=== PATIENT | male | born 1970 | race Caucasian/White ===

== ENCOUNTER → 2023-04-16 11:41 | Outpatient (REF) | payer OTHER, SELFPAY | LOC: MRI 3T 11:41 | PROVIDERS: ATTENDING PHYSICIAN Student in an Organized Health Care Education/Training Program | DX: H53.2 Diplopia (principal) | CPT/HCPCS: 70553; A9575 ==

== ENCOUNTER 2024-03-03 16:06 | Inpatient (IN) | payer OTHER, SELFPAY ==
[2024-03-02] VITALS (10 sets, daily range): BP systolic 124–151; BP diastolic 79–103; BMI 32.0
[2024-03-02 11:22] LABS: % Basophils 0.4 % (0-2); % Eosinophils 4.8 % (0-6); % Immature Granulocytes 0.4 % (0-0.5); % Lymphocytes 25.4 % (20.5-51.1); % Monocytes 10.9 % (1.7-9.3); % Neutrophils 58.1 % (42.2-75.2); Absolute Eosinophils 0.3 10^3/uL (0-0.7); Absolute Lymphocytes 1.3 10^3/uL (1.2-3.4); Absolute Monocytes 0.6 10^3/uL (0.1-0.6); Hematocrit 46.3 % (39.0-52.0); Hemoglobin 16.4 g/dL (13.0-18.0); Mean Corp Hgb Conc. 35.4 g/dL (33.0-37.0); Mean Corpuscular Hgb 30.7 pg (27.0-31.0); Mean Corpuscular Volume 86.7 fL (80.0-94.0); Mean Platelet Volume 10.3 fL (7.4-10.4); Nucleated Red Blood Cells % 0 % (-); Platelet Count 200 10^3/uL (130-400); Red Blood Cell Count 5.34 10^6/uL (4.70-6.10); Red Cell Dist. Width 14.4 % (11.5-14.5); White Blood Cell Count 5.2 10^3/uL (4.8-10.8)
[2024-03-02 11:35] LABS: ALT (SGPT) 39 U/L (0-50); AST (SGOT) 34 U/L (17-59); Albumin 4.6 g/dl (3.5-5.0); Alkaline Phosphatase 44 U/L (38-126); Blood Urea Nitrogen 18 mg/dl (9-20); Calcium 9.6 mg/dl (8.4-10.2); Carbon Dioxide 25 mmol/L (22-30); Chloride 104 mmol/L (98-107); Glucose 147 mg/dl (70-99); Potassium 4.3 mmol/L (3.5-5.1); Sodium 140 mmol/L (135-145); Total Bilirubin 0.9 mg/dl (0.2-1.3); Total Protein 7.5 g/dl (6.3-8.2); eGFR > 60.00
[2024-03-02 11:47] LABS: Troponin I 0.031 ng/ml
[2024-03-02] MEDS: ASPIRIN 325 MG PO (12:19)
--- NOTE | 2024-03-02 13:09 | ED.GENMED ---
History of Present Illness
<AUSTIN Concepcion Jr. Last Filed: 03/03/24 13:09>
General
Chief Complaint: Chest Pain
Source: patient
Exam Limitations: none
Time Seen by Provider: 03/02/24 11:29
Nursing documentation reviewed up to this point in time: agreed with
History of Present Illness
History of Present Illness:
54-year-old male with past medical history of CAD status post 2 stent, diabetes, hypertension, presenting to the emergency department today with concerns of left-sided chest discomfort over the past 2 days gradually worsening no specific palliation
provocation described as achiness going into the left arm with some tingling in the left arm as well. Feels similar to previous episodes when he had cardiac events. Does have 2 stents. Last placed 3 years ago. Symptoms are currently minimal did
take a baby aspirin this morning. Denies any associated shortness of breath nausea vomiting. Does feel somewhat warm denies significant diaphoresis.
Past History
<Justin Bruce Jr., PA-C - Last Filed: 03/03/24 13:09>
Past History
ED Past Medical History: Asthma, CAD ([place] in 2009), HTN, Hypercholesterolemia, IDDM and Other (PANCREATITIS)
ED Past Surgical History: Cardiac (PTCA with stent October 2009); Negative Appendectomy, Bowel resection or Brain
Social History
Tobacco: Smoker (1/2 to 3/4 of a pack per day.)
Alcohol: Occasional
Drug: None
Personal:
Living: with family
Employment: Employed
Family History
Family History: Hypertension and CAD
Review of Systems
<AUSTIN Concepcion Jr. Last Filed: 03/03/24 13:09>
Review of Systems
Allergies reviewed?: Yes
All Other Systems: ROS reviewed and negative except as documented in HPI and ROS
Phy Exam
<AUSTIN Concepcion Jr. Last Filed: 03/03/24 13:09>
Physical Exam
Physical Exam:
GENERAL: Alert , in no apparent distress
EYE: pupils equal and reactive
NECK: Supple, no significant adenopathy.
ENT: o/p clr, mmm.
CARDIAC: Regular rate and rhythm .
LUNGS: Clear breath sounds bilaterally, no acute respiratory distress, no wheezes/rales/rhonchi
ABDOMEN: Soft, without focal tenderness, no r/g, no cvat
NEUROLOGICAL: Alert and oriented, no focal neuro deficits
SKIN: Warm and dry, skin intact.
MUSCULOSKELETAL: No edema, well perfused.
PSYCH: Normal and appropriate interaction.
Scores
<Justin Bruce Jr., PA-C - Last Filed: 03/03/24 13:09>
Heart Score for Chest Pain Patients
Heart Score for Chest Pain Patients: 5
Heart Score Risk: 20.3% MACE over next 6 weeks
<Gamal Tavares PA-C - Last Filed: 03/02/24 17:49>
Heart Score for Chest Pain Patients
STEMI patient?: No
History: Highly Suspicious
ECG: Normal
Age: >45 - <65 years
Risk Factors: >/= 3 Risk Factors or History of CAD
Troponin: </= Normal Limit
Heart Score for Chest Pain Patients: 5
Heart Score Risk: 20.3% MACE over next 6 weeks
Course
<Justin Bruce Jr., PA-C - Last Filed: 03/03/24 13:09>
Orders/Labs/Results
Orders:
Orders
03/02/24 10:38
Electrocardiogram (*1) Urgent
Reason for Study: Chest Pain
EKG- Treatment ONCE
03/02/24 11:06
Complete Blood Count/With Diff Urgent
Comprehensive Metabolic Panel Urgent
Troponin I Urgent
03/02/24 11:54
Chest [CR Chest - 2 Views ] Urgent
Comment:
Reason For Exam: cp
03/02/24 12:08
Aspirin 325 mg PO NOW STA
03/02/24 13:35
EKG [Electrocardiogram (*1)] Urgent
Reason for Study: Chest Pain
EKG- Treatment ONCE
03/02/24 13:44
Troponin I Urgent
03/02/24 Dinner
Cholesterol Lowering
At Your Request: Full Participation
Cholesterol Lowerin nahun/18 CHO Diabetic
03/02/24 16:37
Admit/Transfer Patient As Directed
Co-Sign Provider:
Level of Care: Observation services
Assign to:: IVU
Physician / Group: Dr. Sanders
Diagnosis: chest pain
03/02/24 16:39
Code Status As Directed
Resuscitation Status: Full Code
03/02/24 16:51
Insulin Pump [Patient's Own Insulin Pump] See Dose Instructions SC PRN PRN
03/02/24 17:00
Insulin Pump [Patient's Own Insulin Pump] See Dose Instructions SC ACHS
03/02/24 17:34
Heparin 4,000 units IV NOW STA
Heparin Protocol- PTT Orders As Directed
PTT per Heparin protocol: -Obtain CBC and baseline PTT - if not already collected.
-Obtain PTT 6 hours from start of infusion. Then, every 6 hours until 2 consecutive
PTT's are therapeutic. Then, PTT Daily.
-With each rate change, obtain PTT every 6 hours until 2 consecutive PTT's are
therapeutic. Then, PTT Daily.
Notify MD As Directed
Notify physician if: PTT is greater than or equal to 200.
03/02/24 17:45
Heparin 66641 Units/250 ml 25,000 units in 250 ml IV PER PROTOCOL
Weight to be used for heparin protocol in kilograms (kg):: 101.3
Protocol:: Cardiac Tx/Acute Coronary
PTT Goal Range to be used:: PTT 73 to 111 seconds
Order type:: Initial
INITIAL Infusion Dose (UNITS/KG/hr) & then follow protocol:: 12 units/kg/hr
Infusion Dose in UNITS/hr & then follow protocol (UNITS/hr):: 1,000
INFUSION RATE in mL/hr & then follow protocol (mL/hr):: 10
Additional Instructions:: stop heparin drip at 4 AM as ordered, unless troponin level elevated
PTT less than or equal to 64 seconds:: Increase rate by 200 units/hr (+ 2 mL/hr)
PTT 64.1 to 72.9 seconds:: Increase rate by 100 units/hr (+ 1 mL/hr)
PTT 73 to 111 seconds:: Target Range. No change in rate.
PTT 111.1 to 130.9 seconds:: Decrease rate by 100 units/hr (- 1 mL/hr)
PTT 131 to 199.9 seconds:: HOLD for 1 hr. Then decrease rate by 200 units/hr (- 2 mL/hr)
PTT greater than or equal to 200 seconds:: HOLD for 2 hrs & Notify Provider. Then decrease by 200 units/hr (-
2 mL/hr)
Lab follow-up:: Each change, PTT q6h until 2 consecutive are therapeutic. Then PTT
daily.
03/02/24 18:35
PTT Urgent
Comment: Obtain baseline before beginning heparin infusion if not already collected
03/02/24 20:22
Albuterol [ProAIR HFA INHALER] 1 puff INH R Q4HPRN PRN
Atorvastatin [Lipitor] 80 mg PO QPM
Fenofibrate 145 [Tricor] 145 mg PO QPM
METFORMIN HCl [Glucophage] 1,000 mg PO BID@0800,1700
Montelukast Sodium [Singulair] 10 mg PO QPM
Nitroglycerin Sublingual [Nitrostat (Sublingual)] 0.4 mg SL [id number] PRN
Spironolactone [Aldactone] 25 mg PO QPM
03/02/24 20:22
Activity As Directed
Activity Level: As Tolerated
Bedside Glucose Monitoring As Directed
Frequency: AC&HS
INT (Intravenous Needle Therapy) As Directed
Comment: maintain peripheral IV access
Intake/ Output As Directed
Frequency: Per unit guidelines
Vital Signs As Directed
Frequency: q4h
Weight As Directed
Frequency: Daily
DX Deep Vein Thrombosis Video Routine
03/02/24 20:51
Glycohemoglobin (HgbA1c) Routine
Troponin I Q6H
Comment: at admit & Q3H for 3 total including ED draws, obtain ECG with each level
03/02/24 21:03
Artificial Tears (Pf) [Refresh Eye Drops (Pf)] 1 drops OPHTH QIDPRN PRN
03/03/24 01:46
Basic Metabolic Panel IN AM
Cardiovascular Evaluation IN AM
Complete Blood Count/No Diff IN AM
Troponin I Q6H
Comment: at admit & Q3H for 3 total including ED draws, obtain ECG with each level
03/03/24 02:22
Electrocardiogram (*1) Q6H
Reason for Study: Chest Pain
Comment: at admission and Q3H for total of 3, to be done with each troponin
03/03/24 Breakfast
NPO
Allow oral meds: Yes
Allow clear liquids: No
03/03/24 08:00
Aspirin Low Dose EC [Aspir Low (Enteric Coated)] 81 mg PO DAILY
Cetirizine HCl [Zyrtec] 10 mg PO DAILY
Dapagliflozin [Farxiga] 10 mg PO DAILY
Lisinopril [Zestril] 40 mg PO DAILY
Multivitamin [Theragran] 1 tablet PO DAILY
03/04/24 06:00
Complete Blood Count/No Diff Q2D
Comment: Notify if platelet count is <130,000 or decreases by 50% from baseline
03/04/24 13:00
Metoprolol Xl [Toprol Xl] 25 mg PO DAILY
03/06/24 06:00
Complete Blood Count/No Diff Q2D
Comment: Notify MD if platelet count is <130,000 or decreases by 50% from baseline
03/08/24 06:00
Complete Blood Count/No Diff Q2D
Comment: Notify MD if platelet count is <130,000 or decreases by 50% from baseline
03/10/24 06:00
Complete Blood Count/No Diff Q2D
Comment: Notify MD if platelet count is <130,000 or decreases by 50% from baseline
03/12/24 06:00
Complete Blood Count/No Diff Q2D
Comment: Notify MD if platelet count is <130,000 or decreases by 50% from baseline
03/14/24 06:00
Complete Blood Count/No Diff Q2D
Comment: Notify MD if platelet count is <130,000 or decreases by 50% from baseline
03/16/24 06:00
Complete Blood Count/No Diff Q2D
Comment: Notify MD if platelet count is <130,000 or decreases by 50% from baseline
03/18/24 06:00
Complete Blood Count/No Diff Q2D
Comment: Notify MD if platelet count is <130,000 or decreases by 50% from baseline
Abnormal Lab Results
03/02/24
11:06
Monocytes % 10.9 H %
(1.7-9.3)
Glucose 147 H mg/dl
(70-99)
03/02/24 11:06
03/02/24 11:06
Vital Signs
Initial and Last Documented VS:
Initial Vital Signs
Temp Pulse Resp BP Pulse Ox
98.4 F 104 18 151/103 96
03/02/24 10:47 03/02/24 10:47 03/02/24 10:47 03/02/24 10:47 03/02/24 10:47
Last Documented Vital Signs
Temp Pulse Resp BP Pulse Ox
98 F 100 18 92/71 94
03/03/24 12:20 03/03/24 12:21 03/03/24 12:20 03/03/24 12:21 03/03/24 12:20
<Gamal Tavares PA-C - Last Filed: 03/02/24 17:49>
Orders/Labs/Results
Orders:
Orders
03/02/24 10:38
Electrocardiogram (*1) Urgent
Reason for Study: Chest Pain
EKG- Treatment ONCE
03/02/24 11:06
Complete Blood Count/With Diff Urgent
Comprehensive Metabolic Panel Urgent
Troponin I Urgent
03/02/24 11:54
Chest [CR Chest - 2 Views ] Urgent
Comment:
Reason For Exam: cp
03/02/24 12:08
Aspirin 325 mg PO NOW STA
03/02/24 13:35
EKG [Electrocardiogram (*1)] Urgent
Reason for Study: Chest Pain
EKG- Treatment ONCE
03/02/24 13:44
Troponin I Urgent
03/02/24 Dinner
Cholesterol Lowering
At Your Request: Full Participation
Cholesterol Lowerin nahun/18 CHO Diabetic
03/02/24 16:37
Admit/Transfer Patient As Directed
Co-Sign Provider:
Level of Care: Observation services
Assign to:: IVU
Physician / Group: Dr. Sanders
Diagnosis: chest pain
03/02/24 16:39
Code Status As Directed
Resuscitation Status: Full Code
03/02/24 16:51
Insulin Pump [Patient's Own Insulin Pump] See Dose Instructions SC PRN PRN
03/02/24 17:00
Insulin Pump [Patient's Own Insulin Pump] See Dose Instructions SC ACHS
03/02/24 17:34
Heparin 4,000 units IV NOW STA
Heparin Protocol- PTT Orders As Directed
PTT per Heparin protocol: -Obtain CBC and baseline PTT - if not already collected.
-Obtain PTT 6 hours from start of infusion. Then, every 6 hours until 2 consecutive
PTT's are therapeutic. Then, PTT Daily.
-With each rate change, obtain PTT every 6 hours until 2 consecutive PTT's are
therapeutic. Then, PTT Daily.
Notify MD As Directed
Notify physician if: PTT is greater than or equal to 200.
03/02/24 17:45
Heparin 50166 Units/250 ml 25,000 units in 250 ml IV PER PROTOCOL
Weight to be used for heparin protocol in kilograms (kg):: 101.3
Protocol:: Cardiac Tx/Acute Coronary
PTT Goal Range to be used:: PTT 73 to 111 seconds
Order type:: Initial
INITIAL Infusion Dose (UNITS/KG/hr) & then follow protocol:: 12 units/kg/hr
Infusion Dose in UNITS/hr & then follow protocol (UNITS/hr):: 1,000
INFUSION RATE in mL/hr & then follow protocol (mL/hr):: 10
Additional Instructions:: stop heparin drip at 4 AM as ordered, unless troponin level elevated
PTT less than or equal to 64 seconds:: Increase rate by 200 units/hr (+ 2 mL/hr)
PTT 64.1 to 72.9 seconds:: Increase rate by 100 units/hr (+ 1 mL/hr)
PTT 73 to 111 seconds:: Target Range. No change in rate.
PTT 111.1 to 130.9 seconds:: Decrease rate by 100 units/hr (- 1 mL/hr)
PTT 131 to 199.9 seconds:: HOLD for 1 hr. Then decrease rate by 200 units/hr (- 2 mL/hr)
PTT greater than or equal to 200 seconds:: HOLD for 2 hrs & Notify Provider. Then decrease by 200 units/hr (-
2 mL/hr)
Lab follow-up:: Each change, PTT q6h until 2 consecutive are therapeutic. Then PTT
daily.
03/02/24 18:35
PTT Urgent
Comment: Obtain baseline before beginning heparin infusion if not already collected
03/02/24 20:22
Albuterol [ProAIR HFA INHALER] 1 puff INH R Q4HPRN PRN
Atorvastatin [Lipitor] 80 mg PO QPM
Fenofibrate 145 [Tricor] 145 mg PO QPM
METFORMIN HCl [Glucophage] 1,000 mg PO BID@0800,1700
Montelukast Sodium [Singulair] 10 mg PO QPM
Nitroglycerin Sublingual [Nitrostat (Sublingual)] 0.4 mg SL [id number] PRN
Spironolactone [Aldactone] 25 mg PO QPM
03/02/24 20:22
Activity As Directed
Activity Level: As Tolerated
Bedside Glucose Monitoring As Directed
Frequency: AC&HS
INT (Intravenous Needle Therapy) As Directed
Comment: maintain peripheral IV access
Intake/ Output As Directed
Frequency: Per unit guidelines
Vital Signs As Directed
Frequency: q4h
Weight As Directed
Frequency: Daily
DX Deep Vein Thrombosis Video Routine
03/02/24 20:51
Glycohemoglobin (HgbA1c) Routine
Troponin I Q6H
Comment: at admit & Q3H for 3 total including ED draws, obtain ECG with each level
03/02/24 21:03
Artificial Tears (Pf) [Refresh Eye Drops (Pf)] 1 drops OPHTH QIDPRN PRN
03/03/24 01:46
Basic Metabolic Panel IN AM
Cardiovascular Evaluation IN AM
Complete Blood Count/No Diff IN AM
Troponin I Q6H
Comment: at admit & Q3H for 3 total including ED draws, obtain ECG with each level
03/03/24 02:22
Electrocardiogram (*1) Q6H
Reason for Study: Chest Pain
Comment: at admission and Q3H for total of 3, to be done with each troponin
03/03/24 Breakfast
NPO
Allow oral meds: Yes
Allow clear liquids: No
03/03/24 08:00
Aspirin Low Dose EC [Aspir Low (Enteric Coated)] 81 mg PO DAILY
Cetirizine HCl [Zyrtec] 10 mg PO DAILY
Dapagliflozin [Farxiga] 10 mg PO DAILY
Lisinopril [Zestril] 40 mg PO DAILY
Multivitamin [Theragran] 1 tablet PO DAILY
03/04/24 06:00
Complete Blood Count/No Diff Q2D
Comment: Notify MD if platelet count is <130,000 or decreases by 50% from baseline
03/04/24 13:00
Metoprolol Xl [Toprol Xl] 25 mg PO DAILY
03/06/24 06:00
Complete Blood Count/No Diff Q2D
Comment: Notify MD if platelet count is <130,000 or decreases by 50% from baseline
03/08/24 06:00
Complete Blood Count/No Diff Q2D
Comment: Notify MD if platelet count is <130,000 or decreases by 50% from baseline
03/10/24 06:00
Complete Blood Count/No Diff Q2D
Comment: Notify MD if platelet count is <130,000 or decreases by 50% from baseline
03/12/24 06:00
Complete Blood Count/No Diff Q2D
Comment: Notify MD if platelet count is <130,000 or decreases by 50% from baseline
03/14/24 06:00
Complete Blood Count/No Diff Q2D
Comment: Notify MD if platelet count is <130,000 or decreases by 50% from baseline
03/16/24 06:00
Complete Blood Count/No Diff Q2D
Comment: Notify MD if platelet count is <130,000 or decreases by 50% from baseline
03/18/24 06:00
Complete Blood Count/No Diff Q2D
Comment: Notify MD if platelet count is <130,000 or decreases by 50% from baseline
Abnormal Lab Results
03/02/24
11:06
Monocytes % 10.9 H %
(1.7-9.3)
Glucose 147 H mg/dl
(70-99)
03/02/24 11:06
03/02/24 11:06
Vital Signs
Initial and Last Documented VS:
Initial Vital Signs
Temp Pulse Resp BP Pulse Ox
98.4 F 104 18 151/103 96
03/02/24 10:47 03/02/24 10:47 03/02/24 10:47 03/02/24 10:47 03/02/24 10:47
Last Documented Vital Signs
Temp Pulse Resp BP Pulse Ox
98 F 100 18 92/71 94
03/03/24 12:20 03/03/24 12:21 03/03/24 12:20 03/03/24 12:21 03/03/24 12:20
<Justin Bruce Jr., PA-C - Last Filed: 03/03/24 13:09>
MDM/Problems Addressed
MDM/Problems Addressed:
54-year-old male presenting to the emergency department today with concerns of chest discomfort worsening over the past 2 days mainly to the left chest going to the left arm. He is concerned that it feels similar to previous cardiac events. He had
2 previous stents most recently 3 years ago. On arrival mildly tachycardic otherwise vital signs are normal. Labs unremarkable troponin negative no obvious ischemic changes on the EKG. Case was discussed with patient's warehouse shipping clerk the
recommended second troponin EKG and then they would see him in the ER. Second troponin negative EKG unchanged.
<Gamal Tavares PA-C - Last Filed: 03/02/24 17:49>
*Critical Care Note
Total Time (30-74mins, 75-104mins- exclusive of procedures): Not Applicable
<Gamal Tavares PA-C - Last Filed: 03/02/24 17:49>
Update Note
Update Note:
1625: Reviewed w/ cardiology, will be admitted to cards service for further ischemic evaluation
ED Attending Note
<Justin Bruce Jr., PA-C - Last Filed: 03/03/24 13:09>
-
Portions of this chart may have been created with voice recognition software.� Occasional wrong word or��sound alike� substitutions may have occurred due to the inherent limitations of voice recognition software.
Discharge Plan
Departure
Patient Disposition: Admit
Date of Disposition: 03/02/24
Time of Disposition: 16:23
Presentation/result/management discussed w/ accepting MD/DO: Cardiology-Tommy
Discharge Problem:
Angina pectoris
Interventions
Interventions:
*Risk Screen - Suicide Last Done: 03/02/24 10:47
*General Assessment Last Done: 03/02/24 10:47
*Neglect/Abuse Screening Last Done: 03/02/24 10:47
ED- Fall Risk Assessment Last Done: 03/02/24 20:26
*ED COVID-19 Vaccine History Last Done: 03/02/24 11:30
*Nursing Disposition Last Done: 03/02/24 20:26
ED- Cardiac Assessment Last Done: 03/02/24 11:45
Discharge Date and Time
Discharge Date/Time: 03/02/24 20:27
[2024-03-02 14:18] LABS: Troponin I 0.032 ng/ml
--- NOTE | 2024-03-02 16:27 | HPS.HSE ---
Addendum entered and electronically signed by Olayinka Sanders MD 03/02/24 16:49:
I saw and examined the patient.
The EDUCATIONAL INSTITUTION PRESIDENT's note was reviewed and I agree with the note.
Comment: His current atypical symptoms are similar to his symptoms prior to one of his PCIs (he has 2 LAD PCIs and one Ramus PCI). First PCI was for anterior STEMI. Complex mixed hyperlipidemia in setting of obesity and DM. He has stuttering but
mostly constant CP with negative trop so far. Will add IV heparin (and stop early AM if trop stay normal) for possible ACS. If does well will plan on a stress test otherwise another cath. Will check and echo and a fasting lipid profile.
He is a good candidate for a GLP-1 agonist or a GLP/GIP agonist.
Original Note:
Family Physician
-
Family Physician: Yuliya Ortiz PA-C
Chief Complaint
-
chest discomfort
History of Present Illness
54 y/o male (patient of Dr. aSnders) with CAD with prior TX's and stenting (most recent 2021- see below), ischemic cardiomyopathy EF 40-45%, severe mixed hyperlipidemia, HTN, and DM2 on insulin pump. He is here for 2 days of left chest tightness and
left arm discomfort. It has been on and off, but 'more on than off' and present most of the day today. Nothing makes it better or worse. He is in no distress at the time of my assessment. EKG and trops unremarkable.
Medical History
Past Medical History
Past Medical History: Reports CAD, CHF, HTN, Hypercholesterolemia and IDDM (DM 2 on insulin pump)
Past Surgical History: Reports Other (vasectomy)
Social History
Tobacco: Former Smoker
Personal:
Living: With Family
Family History
Family History: CAD (dad in his 70's)
Allergies / Home Medications
Allergies reflects when Allergies were last updated in [employer].
Home Medications with original date entered in [employer]
Allergy/Medication List:
Allergies: mustard, ragweed
Medications: aspirin 81 mg PO daily, atorvastatin 80 mg PO daily, fenofibrate 145 mg daily, icosapent ethyl 1 gm take 2 capsules PO BID, Jardiance 10 mg PO daily, lisinopril 40 mg PO daily, metformin 1000 mg PO BID, metoprolol 25 mg PO daily,
motelukast 10 mg PO daily, multivitamin daily, nitro PRN, albuterol PRN, spironolactone 25 mg PO daily, Zyrtec 10 mg PO daily. Official pharmacy med rec is pending.
Review of Systems
-
History Source: Patient
A 12 point ROS was completed and negative except as noted: Yes
Constitutional: Reports Fatigue
Cardiac: Reports Chest Pain
Musculoskeletal: Reports Other (arm discomfort)
Physical Exam
Vital Signs
Vital Signs
Temp Pulse Resp BP Pulse Ox
98.4 F 92 18 134/82 96
03/02/24 10:47 03/02/24 15:45 03/02/24 15:45 03/02/24 15:00 03/02/24 15:30
Physical Exam
General: Well Developed, Well Nourished and No Apparent Distress
HEENT: NormoCephalic and Anicteric
Respiratory: Clear and Non Labored Respirations
Cardiac: Regular Rhythm
Skin: Warm and Dry
Neuro: AO x 3
Psych: Calm
Laboratory Results
-
03/02/24 11:06
03/02/24 11:06
Laboratory Results
Total Bilirubin 0.9 mg/dl (0.2-1.3) 03/02/24 11:06
AST 34 U/L (17-59) 03/02/24 11:06
ALT 39 U/L (0-50) 03/02/24 11:06
Alkaline Phosphatase 44 U/L (38-126) 03/02/24 11:06
Troponin I 0.032 ng/ml 03/02/24 13:44
Data Reviewed
-
Diagnostic Radiology: Report Reviewed by me (CXR: Horizontal linear scarring within the right middle lobe. The lungs appear otherwise clear, with no evidence for pneumonia. Cardiac silhouette size is within normal limits with no evidence for
pulmonary edema or pleural effusion.)
Medical Tests (Nuc Med, Echo, EKG etc): Report Reviewed by me (echo and cath reviewed and as documented in body of note)
Lab Data: Labs Reviewed by me
Impression/Plan
-
Chest discomfort:
��������������� -etiology unclear, but known history of significant CAD
��������������� -nuclear exercise stress test in AM- hold metoprolol prior to testing
��������������� -trops/EKG's unremarkable so far- cont to trend
CAD with hx stenting:
��������������� -continue ASA, statin, BB
��������������� -w/u as above
ICM EF 40-45%:
��������������� -appears euvolemic
��������������� -continue metoprolol, lisinopril, jardiance, spironolactone
-update echo
Dyslipidemia:
��������������� -continue atorvastatin, Vascepa
��������������� -update lipids
DM2:
-on insulin pump
-also on metformin
-follow sugars
Data:
Echo 12/19/21: EF 40-45%. Mild concentric left ventricular remodeling. Basal to mid anteroseptal hypokinesis. Stage I diastolic dysfunction
Cath 12/18/21: 1. Right dominant circulation with a proximal RCA MEAT COOLER, patent stents in the LAD with 10% in-stent restenosis, a nonocclusive 40% proximal circumflex lesion (iFR 0.94) and a hazy, culprit, 90% ostial ramus lesion status post successful
PCI ([employer] [place] 3.5 x 18 JOANNA, postdilated with a 3.5 NC balloon) with reduction in stenosis to 0%, maintaining DANIEL-3 flow.
[2024-03-02] MEDS: PATIENT'S OWN INSULIN PUMP 12 UNITS SC (18:36)
[2024-03-02] MEDS: HEPARIN 4000 UNITS IV (18:38)
[2024-03-02] MEDS: HEPARIN 25000 UNITS/250 ML IV (18:39)
[2024-03-02 18:53] LABS: APTT 27.5 Sec (23.4-35.0)
[2024-03-02 20:27] LABS: Glucose - Point of Care 92 mg/dl (70-99)
[2024-03-02] MEDS: LIPITOR 80 MG PO (21:11)
[2024-03-02] MEDS: TRICOR 145 MG PO (21:11)
[2024-03-02] MEDS: GLUCOPHAGE 1000 MG PO (21:11)
[2024-03-02] MEDS: SINGULAIR 10 MG PO (21:11)
[2024-03-02] MEDS: ALDACTONE 25 MG PO (21:11)
[2024-03-02] MEDS: PATIENT'S OWN INSULIN PUMP SC (21:13)
[2024-03-02 21:23] LABS: Troponin I 0.032 ng/ml
--- NOTE | 2024-03-02 21:58 | PTCARENOTE ---
pt. received from ED. pt. seen and assessed in room. pt tele reading NSR. pt. aox3, 3/10 chest pain, 'feeling better' than when he first came in. pt. on heparin gtt running at 1000u/hr. next ptt at 1240am. heparin to be shut off at 4am per order
since serial troponin were flat. pt to be NPO past midnight for stress test in AM. This RN explained the plan of care, pt. verbalizes understanding. Call oliveira within reach. Continuing to monitor at this time.
[2024-03-03] VITALS (12 sets, daily range): BP systolic 92–154; BP diastolic 71–111
[2024-03-03 02:00] LABS: Hematocrit 45.2 % (39.0-52.0); Hemoglobin 16.1 g/dL (13.0-18.0); Mean Corp Hgb Conc. 35.6 g/dL (33.0-37.0); Mean Corpuscular Hgb 30.7 pg (27.0-31.0); Mean Corpuscular Volume 86.3 fL (80.0-94.0); Mean Platelet Volume 10.6 fL (7.4-10.4); Platelet Count 205 10^3/uL (130-400); Red Blood Cell Count 5.24 10^6/uL (4.70-6.10); Red Cell Dist. Width 14.4 % (11.5-14.5); White Blood Cell Count 4.8 10^3/uL (4.8-10.8)
[2024-03-03 02:05] LABS: APTT 30.6 Sec (23.4-35.0)
[2024-03-03 02:19] LABS: Troponin I 0.033 ng/ml
[2024-03-03 02:31] LABS: Blood Urea Nitrogen 21 mg/dl (9-20); Calcium 9.2 mg/dl (8.4-10.2); Carbon Dioxide 26 mmol/L (22-30); Chloride 103 mmol/L (98-107); Estimated Creatinine Clearance 109 ml/min; Glucose 81 mg/dl (70-99); Potassium 4.6 mmol/L (3.5-5.1); Sodium 139 mmol/L (135-145); Total Cholesterol 196 mg/dl (50-199); eGFR > 60.00
[2024-03-03 02:33] LABS: HDL Cholesterol 22 mg/dl; Triglyceride 1285 mg/dl (10-149)
[2024-03-03 04:01] LABS: LDL Cholesterol, Direct < 30 mg/dl
--- NOTE | 2024-03-03 05:00 | PTCARENOTE ---
heparin gtt off at 4am per order, troponin flat, no chest pain at this time. continuing to monitor
--- NOTE | 2024-03-03 07:54 | PTCARENOTE ---
Cardiac services notified that Pt coming for stress test is having and has had chest pain rated 3/10 continually for the past 4 days. Trops negative. Cardiac services then called to say stress test cancelled and plan is for Pt to have card cath.
Echo done in card services.
--- NOTE | 2024-03-03 08:26 | W.PN.CD ---
Today's Communication / Plan
-
ASA, heparin drip
echo and cath today
Impression / Plan
-
Chest pain: suspect ACS/unstable angina
-received ASA 324mg 03/02; continue ASA 81mg daily
-start heparin drip
-requires monitoring of Hgb
-plan for echo and cath today
CAD with hx stenting:
-continue ASA, statin, BB
-plan as above
ICM EF 40-45%:
-appears euvolemic
-continue metoprolol, lisinopril, jardiance, spironolactone
Dyslipidemia with severe hypertriglyceridemia:
-continue atorvastatin, vascepa, fibrate
DM2:
-on insulin pump
-also on metformin
-follow sugars
Data:
Echo 12/19/21: EF 40-45%. Mild concentric left ventricular remodeling. Basal to mid anteroseptal hypokinesis. Stage I diastolic dysfunction
Cath 12/18/21: 1. Right dominant circulation with a proximal RCA [employer]/SUPERINTENDANT, patent stents in the LAD with 10% in-stent restenosis, a nonocclusive 40% proximal circumflex lesion (iFR 0.94) and a hazy, culprit, 90% ostial ramus lesion status post successful
PCI (Medtronic [place] 3.5 x 18 JOANNA, postdilated with a 3.5 NC balloon) with reduction in stenosis to 0%, maintaining DANIEL-3 flow.
Physical Exam
Vital Signs/Labs
Vital Signs
Temp Pulse Resp BP Pulse Ox
97.7 F 87 20 154/79 98
03/03/24 01:38 03/03/24 07:45 03/03/24 01:38 03/03/24 04:13 03/03/24 01:38
03/02/24 03/03/24 03/04/24
06:59 06:59 06:59
Actual Weight 101.3 kg
03/03/24 01:46
03/03/24 01:46
APTT Cancelled 03/03/24 08:11
Triglycerides 1285 mg/dl (10-149) H 03/03/24 01:46
LDL Cholesterol, Calc mg/dl 03/03/24 01:46
VLDL Cholesterol, Calc mg/dl (0-30) 03/03/24 01:46
HDL Cholesterol 22 mg/dl 03/03/24 01:46
LAB Results
03/02/24 03/02/24 03/02/24
11:06 13:44 20:51
Troponin I 0.031 0.032 0.032
03/03/24
01:46
Troponin I 0.033
Physical Exam
Constitutional: No acute distress
EENT: Moist mucous membranes
Cardiovascular: Rhythm & rate is regular, Pedal edema is absent, JVD pressure is normal and Systolic murmur absent
Respiratory: Respiratory effort normal and Lungs clear to auscul.
Neuro/Psych: AO x 3
Data Reviewed
-
Date of Service: March 03, 2024
EKG: Tracing Personally Visualized and interpreted (NSR, anteroseptal infarct)
Labs: Labs Reviewed by me
[2024-03-03] MEDS: GLUCOPHAGE PO (08:42)
[2024-03-03 08:47] LABS: Glycohemoglobin (HgbA1c) 6.5 % (4.0-5.6)
[2024-03-03 08:59] LABS: Glucose - Point of Care 86 mg/dl (70-99)
[2024-03-03] MEDS: ZYRTEC 10 MG PO (09:08)
[2024-03-03] MEDS: THERAGRAN 1 TABLET PO (09:08)
[2024-03-03] MEDS: PATIENT'S OWN INSULIN PUMP SC ×2 (09:08→13:23)
[2024-03-03] MEDS: ZESTRIL 40 MG PO (09:08)
[2024-03-03] MEDS: ASPIR LOW (ENTERIC COATED) 81 MG PO (09:12)
[2024-03-03 09:30] LABS: Hematocrit 46.4 % (39.0-52.0); Hemoglobin 16.2 g/dL (13.0-18.0); Mean Corp Hgb Conc. 34.9 g/dL (33.0-37.0); Mean Corpuscular Hgb 30.1 pg (27.0-31.0); Mean Corpuscular Volume 86.2 fL (80.0-94.0); Mean Platelet Volume 10.6 fL (7.4-10.4); Platelet Count 218 10^3/uL (130-400); Red Blood Cell Count 5.38 10^6/uL (4.70-6.10); Red Cell Dist. Width 14.4 % (11.5-14.5); White Blood Cell Count 5.8 10^3/uL (4.8-10.8)
[2024-03-03 09:43] LABS: APTT 27.6 Sec (23.4-35.0)
[2024-03-03] MEDS: HEPARIN 25000 UNITS/250 ML IV (10:05)
--- NOTE | 2024-03-03 11:09 | CM ---
Chart reviewed. Patient is waiting on heart cath. Patient is independent of ADLS, lives with his in a 2 [address], 2 RAMIRO, 0 DME. Plan is for the patient to return home. CM to follow
[2024-03-03 12:48] LABS: Glucose - Point of Care 81 mg/dl (70-99)
--- NOTE | 2024-03-03 16:13 | PTCARENOTE ---
Rec'd Pt post card cath, A,A+Ox3, denies chest pain. R radial R-band intact C+D. + radial pulse. VSS
--- NOTE | 2024-03-03 16:17 | CM ---
Pricing on Brilinta through the patients prescription plan is $15 for a 30 day supply. I placed a $5 copay card in the patient's red discharge folder. Brilinta is in stock at the [facility] pharmacy.
--- NOTE | 2024-03-03 16:26 | ITS.CL.ANGIO ---
Consumer Science Teacher - Angioplasty
Angioplasty
Procedure Report:
CARDIAC CATHETERIZATION REPORT
Date of Procedure: 03/03/2024
Referring: Mau Vogt M.D., Ph.D.
INDICATION: Unstable angina.
PROCEDURE:
1. Left heart catheterization.
2. Coronary angiography.
3. Successful PCI of the proximal circumflex.
A total of 59 minutes of procedural/moderate sedation was utilized. An independent mobile paramedical examiner was present to assist with and help manage the patient's level of consciousness and physiologic status.
ACCESS:
1. 6 [place] right radial artery using a modified Seldinger technique.
CATHETERS:
1. 5 Icelandic JR4.
2. 5 Icelandic JL 4.
3. 6 Icelandic EBU 4.0 guiding catheter.
HEMODYNAMIC DATA
Weight (kg): 101.2
AO (s/d/x, mmHg): 90/66/75
LV (s/x mmHg): 93/20
LEFT VENTRICULOGRAPHY: Not performed.
CORONARY ANGIOGRAPHY
Dominance: Right.
Left Main: Large size, trifurcating vessel. There is no coronary artery disease.
LAD: Normal size vessel wrapping around the apex. A patent stent is present in the proximal vessel with approximately 20% in-stent restenosis.
Ramus: Large size vessel supplying the majority of the lateral wall. A patent stent is present in its proximal margin and does cover the origin of the AV groove circumflex.
Circumflex: Normal size vessel giving rise to several small obtuse marginals. There is an 80-90% lesion in the proximal vessel.
RCA: Normal size, dominant vessel that is chronically totally occluded at its origin. The distal RCA is supplied by collaterals from the distal circumflex and apical LAD.
INTERVENTION(S)
1. Successful PCI of the 80-90% proximal circumflex lesion (Medtronic [place] 2.5 x 12 JOANNA, postdilated with a 2.5 NC balloon) with reduction in stenosis to 0%, maintaining DANIEL-3 flow.
Narrative:
The decision was made to proceed with percutaneous coronary intervention. The diagnostic catheter was removed over a wire and a 6Fr EBU 4.0 guiding catheter was advanced to the aortic root and seated in the left main coronary artery. Additional
heparin was given and a Power Turn Flex wire was advanced into the ramus with a band angled towards the circumflex. The power turn flex wire was able to traverse the stent, but consistently prolapsed into the ramus or entered a small branch artery
within the circumflex rather than tracing the true vessel. A mini microcatheter was advanced for wire support. Unfortunately, this would not cross the stent struts, even after the wire had partially crossed. It was clear that a more lubricious
wire and directional microcatheter would be required.
The power turn flex wire was withdrawn through the mini catheter and a whisper wire was advanced. The whisper wire had more success traversing the stent struts, but continued to enter small branches and prolapse into the large ramus. The mini
catheter was removed and a 90 degree super cross microcatheter was advanced with 6 Icelandic GuideLiner support. After advancing the super cross microcatheter into the ramus, the whisper wire was pulled back to allow the microcatheter to assume its
natural shape. Using the directional microcatheter, we were able to advance the whisper wire into the true AV groove circumflex. The super cross was then advanced into the circumflex without issue. With satisfactory microcatheter purchase, the
whisper wire was withdrawn and a new power turn flex wire was advanced through the microcatheter and into the AV groove circumflex. The super cross microcatheter was removed using a wire pinning technique.
The 80-90% proximal circumflex lesion was predilated with a 2.0 x 12 semi-compliant balloon to 12 kevin. The semi-compliant balloon was removed and a Medtronic [place] 2.5 x 12 drug-eluting stent was advanced. The stent was deployed at 12
atmospheres. The stent balloon was removed. A 2.5 x 12 noncompliant balloon was advanced into the stent and the stent was postdilated to 12 atmospheres. Angiography was performed in orthogonal views, confirming good stent expansion and an excellent
angiographic result. The coronary wire was withdrawn and the guide was disengaged from the artery. The catheter was removed over a standard J-wire.
Closure Device: Vascular band.
Radiation (mGy): 1198.67
DAP (cm2.Gy): 69.9009
Fluoroscopy time (minutes): 18.9
CONCLUSIONS
1. Right dominant circulation with chronic total occlusion of the ostial RCA supplied by collaterals from the LAD and circumflex, patent proximal LAD stent with 20% in-stent restenosis, a patent proximal ramus stent that covers the ostium of the
left circumflex and an 80-90% lesion in the proximal circumflex, status post successful PCI (Medtronic [place] 2.5 x 12 JOANNA, postdilated with a 2.5 NC balloon) with reduction in stenosis to 0%, maintaining DANIEL-3 flow.
2. Moderately elevated filling pressures (LVEDP = 20 mmHg at 101.2 kg).
RECOMMENDATIONS:
1. Expectant management after cardiac catheterization via right radial approach.
2. Limited weight bearing on the right wrist for one week.
3. Dual antiplatelet therapy with aspirin and ticagrelor for at least 12 months, followed by aspirin indefinitely.
4. Aggressive secondary prevention with high-dose, high potency statin. Goal LDL <55.
5. Guideline directed medical therapy as hemodynamics will tolerate.
6. Start furosemide 40 mg p.o. daily.
7. BMP in 1 week to monitor renal function and potassium levels.
8. Referral to cardiac rehab.
Copy to: Mau Vogt M.D., Ph.D., Yuliya Ortiz PA-C
Gm Sarah DO, FACC, FACP
[2024-03-03] MEDS: LIPITOR 80 MG PO (17:34)
[2024-03-03] MEDS: FARXIGA 10 MG PO (17:34)
[2024-03-03] MEDS: TRICOR 145 MG PO (17:34)
[2024-03-03] MEDS: ALDACTONE 25 MG PO (17:34)
[2024-03-03] MEDS: SINGULAIR 10 MG PO (17:35)
--- NOTE | 2024-03-03 17:56 | PTCARENOTE ---
Pt assisted OOB to BR, kip well
[2024-03-03 18:24] LABS: Glucose - Point of Care 179 mg/dl (70-99)
[2024-03-03] MEDS: PATIENT'S OWN INSULIN PUMP 14 UNITS SC (18:51)
[2024-03-03 21:42] LABS: Glucose - Point of Care 125 mg/dl (70-99)
[2024-03-04 00:10] VITALS: BP 94/70
[2024-03-04 00:19] LABS: Glucose - Point of Care 142 mg/dl (70-99)
[2024-03-04] MEDS: PATIENT'S OWN INSULIN PUMP SC (00:28)
--- NOTE | 2024-03-04 02:32 | PTCARENOTE ---
Assumed care of the pt @ 1900. Pt AAOx3 TR Band removed right radial cath site dressing c/d/i no hematoma. SR on the monitor VSS. Pt is independent in the room. Call oliveira within reach.
[2024-03-04 04:05] VITALS: BP 131/83
[2024-03-04 04:57] LABS: Hematocrit 43.6 % (39.0-52.0); Hemoglobin 14.9 g/dL (13.0-18.0); Mean Corp Hgb Conc. 34.2 g/dL (33.0-37.0); Mean Corpuscular Hgb 30.3 pg (27.0-31.0); Mean Corpuscular Volume 88.6 fL (80.0-94.0); Mean Platelet Volume 10.7 fL (7.4-10.4); Platelet Count 198 10^3/uL (130-400); Red Blood Cell Count 4.92 10^6/uL (4.70-6.10); Red Cell Dist. Width 14.6 % (11.5-14.5); White Blood Cell Count 4.9 10^3/uL (4.8-10.8)
[2024-03-04 04:59] LABS: Blood Urea Nitrogen 22 mg/dl (9-20); Calcium 9.1 mg/dl (8.4-10.2); Carbon Dioxide 27 mmol/L (22-30); Chloride 104 mmol/L (98-107); Estimated Creatinine Clearance 123 ml/min; Glucose 109 mg/dl (70-99); Potassium 4.4 mmol/L (3.5-5.1); Sodium 138 mmol/L (135-145); eGFR > 60.00
[2024-03-04 05:10] LABS: APTT 29.2 Sec (23.4-35.0)
[2024-03-04 06:00] VITALS: BMI 31.9
[2024-03-04 08:02] LABS: Glucose - Point of Care 98 mg/dl (70-99)
--- NOTE | 2024-03-04 08:03 | W.PN.CD ---
Today's Communication / Plan
-
DAPT for 12 months followed by aspirin indefinitely.
Furosemide 40 mg daily starting today.
BMP in one week to monitor renal function, K+ levels.
Outpatient consideration of GLP-1 analog, plasmapheresis for severe hypertriglyceridemia?
Stable for outpatient follow up.
Impression / Plan
-
Impression/Plan: 54 y/o male with HTN, HLD, IDDM, CAD with prior PCI and ischemic cardiomyopathy admitted with unstable angina.
#Unstable angina/CAD
-Acute.
-Cath revealed with patent stents in the LAD and RI with progression of 40% LCx to 80-90%, now s/p PCI (Medtronic [place] 2.5 x 12 JOANNA) with reduction in stenosis to 0%, maintaining DANIEL III flow. Technically challenging PCI due to prior RI
stent jailing the ostium of the LCx.
-DAPT with ASA and ticagrelor for 12 months, followed by aspirin indefinitely.
-Continue high dose, high potency statin.
-Continue metoprolol.
#ICM
-Chronic, stable.
-LVEF 40-45%.
-LVEDP 20 mmHg during cath.
-Furosemide 40 mg PO ordered.
-Continue dapagliflozin, spironolactone.
-Restart metoprolol 25 mg daily.
#Dyslipidemia with severe hypertriglyceridemia
-Chronic, stable.
-Continue atorvastatin, icosapent ethyl, fenofibrate.
-Goal LDL < 55 (currently < 30), triglycerides < 150 (currently 1285).
-Medical therapy for TG > 400 have relatively limited efficacy.
-Given prior pancreatitis and severe TG elevation - role for plasmapheresis?
#IDDM2
-Chronic, stable.
-Continue insulin pump.
-Hold metformin today, resume tomorrow due to contrast from cath.
-Role for GLP-1 analogs for improved diabetic (and thus triglyceride) control? Patient reports endocrinology is opposed due to prior pancreatitis.
Subjective/Interval History:
Cardiac catheterization revealed progression of LCx disease.
PCI of LCx performed.
LVEDP at the time of #cath was 20 mmHg.
Furosemide 40 mg PO ordered (not yet started).
BP on the lower side this morning, immediately recovered.
DATA:
Cardiac Catheterization/PCI, 03/03/2024:
CONCLUSIONS
1. Right dominant circulation with chronic total occlusion of the ostial RCA supplied by collaterals from the LAD and circumflex, patent proximal LAD stent with 20% in-stent restenosis, a patent proximal ramus stent that covers the ostium of the
left circumflex and an 80-90% lesion in the proximal circumflex, status post successful PCI (Medtronic [place] 2.5 x 12 JOANNA, postdilated with a 2.5 NC balloon) with reduction in stenosis to 0%, maintaining DANIEL-3 flow.
2. Moderately elevated filling pressures (LVEDP = 20 mmHg at 101.2 kg).
Transthoracic Echo, 03/02/2024:
CONCLUSIONS
Moderately reduced left ventricular systolic function. Left ventricular
ejection fraction is 40%.
Hypokinesis of the basal to mid anterior/anteroseptal segments.
No significant valve disease.
Compared to 12/19/21: LVEF is similar (prior 40-45%) to slightly lower.
Physical Exam
Vital Signs/Labs
Vital Signs
Temp Pulse Resp BP Pulse Ox
36.6 C 81 16 94/70 97
03/04/24 00:50 03/04/24 00:50 03/04/24 00:50 03/04/24 00:10 03/04/24 00:50
03/02/24 03/03/24 03/04/24
11:59 11:59 11:59
Actual Weight 101.3 kg 100.9 kg
03/04/24 04:22
03/04/24 04:22
APTT 29.2 Sec (23.4-35.0) 03/04/24 04:22
Triglycerides 1285 mg/dl (10-149) H 03/03/24 01:46
LDL Cholesterol, Calc mg/dl 03/03/24 01:46
VLDL Cholesterol, Calc mg/dl (0-30) 03/03/24 01:46
HDL Cholesterol 22 mg/dl 03/03/24 01:46
LAB Results
03/02/24 03/02/24 03/02/24
11:06 13:44 20:51
Troponin I 0.031 0.032 0.032
03/03/24
01:46
Troponin I 0.033
Physical Exam
Constitutional: No acute distress and Comfortable
EENT: Anicteric and Moist mucous membranes
Cardiovascular: Rhythm & rate is regular, Pedal edema is absent, JVD pressure is normal, S1S2 is normal and Murmur/rub/gallop absent
Respiratory: Respiratory effort normal, Lungs clear to auscul., Wheeze Absent, Crackles Absent and Rhonchi Absent
GI: Soft, Distention absent, Flat, Non tender and Normal bowel sounds
Neuro/Psych: AO x 3
Other: Cath Site (Right radial access site is C/D/I.)
Data Reviewed
-
Date of Service: March 04, 2024
Medical Decision Making: Reviewed Test Results, Independent Historian Assessment and Test Interpretation
EKG: Tracing Personally Visualized and interpreted and Report Reviewed by me
Echo: Tracing Personally Visualized and interpreted and Report Reviewed by me
X-Ray/CT/US/MRI/NUC/PET: Image Personally Visualized and interpreted and Report Reviewed by me
Medical Tests (PFT, Pathology etc): Image Personally Visualized and interpreted and Report Reviewed by me
Labs: Labs Reviewed by me
Old Records: Reviewed
[2024-03-04 08:22] LABS: ACT-LR - POC > 397 Seconds (116-155)
[2024-03-04 08:30] VITALS: BP 138/78
[2024-03-04] MEDS: THERAGRAN 1 TABLET PO (08:58)
[2024-03-04] MEDS: ZESTRIL 40 MG PO (08:58)
[2024-03-04] MEDS: ZYRTEC 10 MG PO (08:58)
[2024-03-04] MEDS: ASPIR LOW (ENTERIC COATED) 81 MG PO (08:58)
[2024-03-04] MEDS: BRILINTA 90 MG PO (08:58)
[2024-03-04] MEDS: FARXIGA 10 MG PO (08:59)
[2024-03-04] MEDS: PATIENT'S OWN INSULIN PUMP 12.5 UNITS SC (09:07)
--- NOTE | 2024-03-04 10:03 | PTCARENOTE ---
Discharge instructions reviewed with Pt and his , he expressed understanding
--- NOTE | 2024-03-04 12:02 | W.DS.TRANS ---
DC Summary - Construction Specialist
-
Discharge Instructions:
Discharge Diagnosis/Procedures Angioplasty with stent to left circumflex artery
Diet Low Cholesterol,Diabetic, Carb Controlled
Driving Restrictions No driving for 24 hours
Blood Work Check BMP in 1 week
Other Services Cardiac Rehab
Instructions:
Stand-Alone Forms: DC Instructions- Cath/EP Lab
Return to Work
Changes to Home Medications: Yes
Discharge Medications:
DC Medications w/original date entered in [facility]
montelukast 10 mg tablet 10 mg PO QPM Allergies 03/16/18
albuterol sulfate 90 mcg/actuation aerosol inhaler 1 puff inhalation R Q4HPRN PRN SOB 11/14/19
aspirin 81 mg tablet,delayed release 81 mg PO DAILY Blood clot prevention/tx 11/14/19
metformin 1,000 mg tablet 1,000 mg PO BID@0800,1700 Diabetes 11/14/19
multivitamin with folic acid 400 mcg tablet (Tab-A-Vu) 1 tab PO DAILY Supplement 11/14/19
spironolactone 25 mg tablet 25 mg PO QPM Heart Failure 11/14/19
Pt Own Insulin Pump 0 units SC UD Diabetes 12/18/21
atorvastatin 80 mg tablet 80 mg PO QPM High cholesterol 12/18/21
fenofibrate nanocrystallized 145 mg tablet 145 mg PO QPM High cholesterol 12/18/21
icosapent ethyl 1 gram capsule (Vascepa) 2 gm PO BID High cholesterol 12/18/21
lisinopril 40 mg tablet 40 mg PO DAILY Blood pressure 12/18/21
metoprolol succinate 25 mg tablet,extended release 24 hr 25 mg PO DAILY Blood pressure 12/18/21
cetirizine 10 mg tablet (Zyrtec) 10 mg PO DAILY 03/02/24
dextran 70-hypromellose eye drops in a dropperette (Artificial Tears (PF) drops in a dropperette) 1 drp ophthalmic (eye) QIDPRN PRN dry eyes 03/02/24
empagliflozin 10 mg tablet (Jardiance) 10 mg PO DAILY 03/02/24
ticagrelor 90 mg tablet (Brilinta) 90 mg PO BID #60 tabs 03/03/24
furosemide 40 mg tablet (Lasix) 40 mg PO DAILY #90 tabs 03/04/24
Home Medication Changes
new to ticagrelor and furosemide
Pending Results: No
== END 2024-03-04 10:06 | disposition home or self-care (01) | DRG 322 ==
LOC: IVU 16:06
PROVIDERS: Emergency Medicine; Internal Medicine; Internal Medicine Cardiovascular Disease; Nurse Practitioner; Nurse Practitioner Adult Health; Physician Assistant; ADMITTING PHYSICIAN Internal Medicine Cardiovascular Disease; EMERGENCY PHYSICIAN Emergency Medicine; FAMILY PHYSICIAN Student in an Organized Health Care Education/Training Program
PROC: 4A023N7 Measurement of Cardiac Sampling and Pressure, Left Heart, Percutaneous Approach (ICD-10-PCS; 2024-03-03)
PROC: B2111ZZ Fluoroscopy of Multiple Coronary Arteries using Low Osmolar Contrast (ICD-10-PCS; 2024-03-03)
PROC: 027034Z Dilation of Coronary Artery, One Artery with Drug-eluting Intraluminal Device, Percutaneous Approach (ICD-10-PCS; 2024-03-03)
DX: T82.855A Stenosis of coronary artery stent, initial encounter (principal); I25.110 Atherosclerotic heart disease of native coronary artery with unstable angina pectoris; E78.2 Mixed hyperlipidemia; J45.909 Unspecified asthma, uncomplicated; I25.5 Ischemic cardiomyopathy; E11.9 Type 2 diabetes mellitus without complications; E66.9 Obesity, unspecified; I11.0 Hypertensive heart disease with heart failure; I50.9 Heart failure, unspecified; Y92.9 Unspecified place or not applicable; Y71.2 Prosthetic and other implants, materials and accessory cardiovascular devices associated with adverse incidents; Y83.1 Surgical operation with implant of artificial internal device as the cause of abnormal reaction of the patient, or of later complication, without mention of misadventure at the time of the procedure; Z96.41 Presence of insulin pump (external) (internal); Z87.891 Personal history of nicotine dependence; Z79.4 Long term (current) use of insulin; I25.2 Old myocardial infarction; Z95.5 Presence of coronary angioplasty implant and graft; Z82.49 Family history of ischemic heart disease and other diseases of the circulatory system; Z79.84 Long term (current) use of oral hypoglycemic drugs; Z68.31 Body mass index [BMI] 31.0-31.9, adult; Z79.82 Long term (current) use of aspirin
CPT/HCPCS: 71046; 80048; 80053; 80061; 82962; 83036; 83721; 84484; 85025; 85027; 85347; 85730; 93005; 93306; 93458; 96365; 96366; 99285; C1725; C1769; C1874; C1887; C1894; C9600; Q9967